=== PATIENT | female | born 1935 | race Caucasian/White ===

== ENCOUNTER → 2016-12-28 | Outpatient (CLI) | payer OTHER ==
[~2016-12-28] MED LIST: ACIDOPHILUS1 EAC4 PO; ALBUTEROL2.5 MG/0.5 INH; ALDACTONE25 MG PO; AMIODARONE PO; AMITRIPTYLINE H25 M2 PO; APAP500 PO; APAP650 PO; ASPIR 8181 MG PO; ASPIRIN325 PO; BENAZEPRIL HCL10 MG PO; CALCIUM + VITA1 EAC1 PO; CALCIUM 600 +1 EA13 PO; CARVEDILOL12.5 MG PO; CARVEDILOL25 MG PO; CENTRUM SILVER1 EAC4 PO; CEPHALEXIN 500500 M3 PO; CLONIDINE HCL0.3 M2 PO; CLONIDINE0.1 PO; COREG6.25 MG PO; DEMADEX20 MG PO; DILTIAZEM 24HR360 M1 PO; ELIQUIS2.5 MG PO; ERYTHROMYCIN E3.5 G3 OPHTHALMIC; FLANAX220 MG PO; FLAX SEED OIL1000 MG PO; FLAXSEED1000 MG PO; FOSAMAX 70 MG T70 M1 PO; FOSAMAX 70 MG T70 MG PO; FUROSEMIDE 20 M20 M1 PO; FUROSEMIDE 40 M40 M1 PO; GABAPENTIN 100100 MG PO; HUMALOG100 UNIT/1 SUBQ; HYTRIN 1 MG CAP1 MG PO; IMODIUM MULTI-1 EACH PO; K-DUR 20 MEQ T20 MEQ PO; LANOXIN 0.120.125 M1 PO; LANTUS SUBQ; LASIX 40 MG TAB40 MG PO; LEVAQUIN 250 M250 MG PO; LEVEMIR SUBQ; LEVOTHYROXINE0.05 MG PO; LIPITOR10 MG PO; LISINOPRIL40 MG PO; LOPRESSOR100 MG PO; LOTENSIN40 MG PO; MAALOX525 MG/15; MAGNESIUM400 MG PO; METOLAZONE 2.52.5 MG PO; MUCINEX TA600 MG/TA2 PO; NORVASC 2.5 MG2.5 M1 PO; NORVASC 5 MG TAB5 MG PO; NOVOLOG100 UNIT/1 SUBQ; NUMOISYN300 ML PO; PACERONE 200 M200 M1 PO; PRAVACHOL80 MG PO; PREDNISONE 10 M10 MG; PREDNISONE 20 M20 MG PO; PROAIR HFA8.5 GM; PROTONIX40 M1 PO; ROCEPHIN 11 GM/1001 IV; SYMBICORT160 MCG/4. INH; TESSALON PERLE100 MG PO; TOPROL XL100 MG PO; TORSEMIDE10 MG PO; TORSEMIDE20 MG PO; VALTREX 500 MG500 MG PO; VITAMIN D35000 UNI1 PO; XARELTO15 MG PO; XARELTO20 MG PO
== END ==
LOC: NUC 02:42
DX: E11.621 Type 2 diabetes mellitus with foot ulcer (principal); L97.509 Non-pressure chronic ulcer of other part of unspecified foot with unspecified severity; L08.9 Local infection of the skin and subcutaneous tissue, unspecified

== ENCOUNTER 2017-01-04 10:40 | Emergency (ER) | payer OTHER ==
[~2017-01-04] VITALS: Ht 165.1 cm; Wt 85.3 kg
[2017-01-04] MEDS ORDERED: ALDACTONE25 MG PO (11:16)
[2017-01-04] MEDS ORDERED: DEMADEX20 MG PO (11:40)
[2017-01-04] MEDS ORDERED: PERCOCET 5-3251 EACH PO (12:59)
== END 2017-01-04 13:27 | disposition home or self-care (01) ==
LOC: ER 10:40
DX: S89.91XA Unspecified injury of right lower leg, initial encounter (principal); I50.9 Heart failure, unspecified; E11.9 Type 2 diabetes mellitus without complications; E09.40 Drug or chemical induced diabetes mellitus with neurological complications with diabetic neuropathy, unspecified; Z90.710 Acquired absence of both cervix and uterus; Z85.828 Personal history of other malignant neoplasm of skin; I10 Essential (primary) hypertension; Z95.0 Presence of cardiac pacemaker; Z88.8 Allergy status to other drugs, medicaments and biological substances; W06.XXXA Fall from bed, initial encounter; Y93.89 Activity, other specified; Y92.89 Other specified places as the place of occurrence of the external cause; Y99.9 Unspecified external cause status

== ENCOUNTER → 2017-01-05 | Outpatient (CLI) | payer OTHER ==
[~2017-01-05] MED LIST changes: +PERCOCET 5-3251 EACH PO
== END ==
LOC: HYPER 06:59
DX: S81.801A Unspecified open wound, right lower leg, initial encounter (principal); E11.40 Type 2 diabetes mellitus with diabetic neuropathy, unspecified; M19.90 Unspecified osteoarthritis, unspecified site; I11.0 Hypertensive heart disease with heart failure; I50.9 Heart failure, unspecified; I48.0 Paroxysmal atrial fibrillation; Z95.0 Presence of cardiac pacemaker; Z79.4 Long term (current) use of insulin; Z90.710 Acquired absence of both cervix and uterus; Z85.828 Personal history of other malignant neoplasm of skin; Z72.89 Other problems related to lifestyle; W05.1XXA Fall from non-moving nonmotorized scooter, initial encounter; Y93.89 Activity, other specified; Y92.89 Other specified places as the place of occurrence of the external cause; Y99.8 Other external cause status

== ENCOUNTER → 2017-01-12 | Outpatient (CLI) | payer OTHER | LOC: HYPER 07:07 | DX: E11.622 Type 2 diabetes mellitus with other skin ulcer (principal); L97.811 Non-pressure chronic ulcer of other part of right lower leg limited to breakdown of skin; E11.40 Type 2 diabetes mellitus with diabetic neuropathy, unspecified; M19.90 Unspecified osteoarthritis, unspecified site; I11.0 Hypertensive heart disease with heart failure; I50.20 Unspecified systolic (congestive) heart failure; I48.0 Paroxysmal atrial fibrillation; Z79.4 Long term (current) use of insulin; Z72.89 Other problems related to lifestyle ==

== ENCOUNTER → 2017-01-23 | Outpatient (CLI) | payer OTHER | LOC: HYPER 07:06 | DX: E11.621 Type 2 diabetes mellitus with foot ulcer (principal); L97.811 Non-pressure chronic ulcer of other part of right lower leg limited to breakdown of skin; E11.40 Type 2 diabetes mellitus with diabetic neuropathy, unspecified; M19.90 Unspecified osteoarthritis, unspecified site; I48.0 Paroxysmal atrial fibrillation; I11.0 Hypertensive heart disease with heart failure; I50.9 Heart failure, unspecified; Z72.89 Other problems related to lifestyle; Z95.1 Presence of aortocoronary bypass graft; Z90.710 Acquired absence of both cervix and uterus; Z79.4 Long term (current) use of insulin; Z85.828 Personal history of other malignant neoplasm of skin ==

== ENCOUNTER → 2017-02-13 | Outpatient (CLI) | payer OTHER | LOC: HYPER 07:09 | DX: S81.801D Unspecified open wound, right lower leg, subsequent encounter (principal); E11.40 Type 2 diabetes mellitus with diabetic neuropathy, unspecified; M19.90 Unspecified osteoarthritis, unspecified site; I11.0 Hypertensive heart disease with heart failure; I50.9 Heart failure, unspecified; I48.0 Paroxysmal atrial fibrillation; Z95.0 Presence of cardiac pacemaker; Z90.710 Acquired absence of both cervix and uterus; Z85.828 Personal history of other malignant neoplasm of skin; Z72.89 Other problems related to lifestyle; Z79.4 Long term (current) use of insulin; X58.XXXD Exposure to other specified factors, subsequent encounter ==

== ENCOUNTER → 2017-03-07 | Outpatient (CLI) | payer OTHER | LOC: HYPER 07:42 | DX: S81.801D Unspecified open wound, right lower leg, subsequent encounter (principal); E11.40 Type 2 diabetes mellitus with diabetic neuropathy, unspecified; M19.90 Unspecified osteoarthritis, unspecified site; I11.0 Hypertensive heart disease with heart failure; I50.9 Heart failure, unspecified; I48.0 Paroxysmal atrial fibrillation; Z79.4 Long term (current) use of insulin; Z72.89 Other problems related to lifestyle; X58.XXXD Exposure to other specified factors, subsequent encounter ==

== ENCOUNTER 2017-03-19 13:11 | Inpatient (IN) | payer OTHER ==
[~2017-03-19] VITALS: Ht 170.2 cm; Wt 75.7 kg
[2017-03-19] VITALS (31 sets, daily range): BP systolic 51–219; BP diastolic 33–198
--- NOTE | ~2017-03-19 | HC ---
[facility] [place] [address] CONSULTATION Name: GRACE VELAZQUEZ Room #: 237-P ADM IN M.R.#: [id number] Admission: 03/19/17 Attend Phys: Christina Breen MD Discharge: Date of : 34 Report #: [id number] THIS REPORT FOR: //name// CC: Chirstina Lundyore Patton DATE OF SERVICE: 03/19/2017 NEPHROLOGY CONSULTATION ATTENDING PHYSICIAN: Dr. Breen. REASON FOR CONSULTATION: [id number] kidney disease. HISTORY OF PRESENT ILLNESS: An 81-year-old patient, known to our service, has been followed intermittently in our office with diabetic nephropathy, with baseline creatinine of, I believe, close to 2. Has also been seen in the hospital on several occasions with chronic kidney disease. She had melena and hematemesis over the last couple of days, became progressively weak, came to the emergency room, was found to have hemoglobin of only 4.5 and was admitted. PAST MEDICAL HISTORY: She has chronic atrial fibrillation, permanent pacemaker and sick sinus syndrome. She is on chronic Eliquis therapy. Recent episode of shingles for which she was admitted to the hospital. She has had some skin cancers, apparently had an ICD placed. She has had long-standing diabetes with peripheral neuropathy and CKD with modest proteinuria, previous hysterectomy as well. FAMILY HISTORY: Negative for renal disease or diabetes. SOCIAL HISTORY: No cigarettes or alcohol. REVIEW OF SYSTEMS: GENERAL: She has been a poor historian at the current time as she is somewhat groggy, very ill, is seen in the ICU. EYES: Vision appears to be okay. ENT: Hearing okay. No problems with swallowing. ENDOCRINE: Positive for the diabetes. RESPIRATORY: She denies shortness of breath or pleuritic pain. No cough or hemoptysis. CARDIAC: No chest pain. No current swelling in the legs. GASTROINTESTINAL: She has had the nausea, vomiting, bloody stool and bloody emesis, as mentioned, but no abdominal pain. GENITOURINARY: No dysuria or hematuria. [facility] [address] [place] [address] CONSULTATION Name: GRACE VELAZQUEZ Room #: [address] [place] [address] IN M.R.#: [id number] Admission: 03/19/17 Attend Phys: Christina Breen MD Discharge: Date of : 34 Report #: [id number] NEUROLOGIC: She has got neuropathy symptoms in her legs. PSYCHIATRIC: Denies depression or anxiety. PHYSICAL EXAMINATION: GENERAL: This is an ill-appearing woman, somewhat pale. SKIN: Turgor is okay, no rash. SKELETAL: Somewhat overweight. HEENT: Extraocular movements are full. No scleral icterus. Hearing and vision intact. Mucous membranes dry. NECK: Neck veins are flat. CHEST: Clear. HEART: Regular with a pacemaker. ABDOMEN: Soft and nontender. EXTREMITIES: Show no edema. Peripheral pulses are diminished. Feet are slightly cool. LABORATORY DATA: Initially, hemoglobin only 4.5, hematocrit 13.6. ASSESSMENT AND PLAN: 1. Marked upper gastrointestinal bleed. She has had a marked upper GI bleed. Her BUN is all the way up to 175 with creatinine of 3. She appears to have stopped bleeding and they are holding off on . I will give her lots of blood and fluids. 2. Acute kidney injury superimposed on chronic kidney disease. She has chronic kidney disease and diabetic nephropathy with modest proteinuria. She is not on a renin-angiotensin system drug at the current time. She has acute exacerbation due to marked volume depletion from very severe gastrointestinal bleed. 3. Diabetes mellitus with peripheral neuropathy. 4. Sick sinus syndrome with pacemaker and implantable cardioverter defibrillator. 5. Recent zoster, now resolved. 6. Chronic anticoagulation, on Eliquis. <ELECTRONICALLY SIGNED> By: Andrez Ramirez MD 03/21/17 0718 1741 0137 Woody Moss MD /nt
--- NOTE | ~2017-03-19 | 2DMMODE ---
[facility] [address] [place] [address] 2 D/M-MODE ECHOCARDIOGRAM Name: GRACE VELAZQUEZ Room #: 237-P ADM IN M.R.#: [id number] Admission: 03/19/17 Attend Phys: Christina Breen MD Discharge: Date of : 34 Date of Service: 03/20/17 0859 Report #: [id number] THIS REPORT FOR: //name// APPROVED REPORT Study performed: 03/20/2017 07:54:39 EXAM: Comprehensive 2D, Doppler, and color-flow Echocardiogram Patient Location: Bedside Room #: [facility] Status: routine Other Information Study Quality: Adequate Indications Hx: Afib, pacemaker, CHF, HTN, DM 2D Dimensions RVDd: 44.60 mm LVEF(%): 78.61 (>50%) IVSd: 10.28 (7-11mm) LVOT Diam: 19.95 (18-24mm) LVDd: 45.92 mm PWd: 9.29 (7-11mm) Ascending Ao: 36.94 (22-36mm) LVDs: 24.27 (25-40mm) Aortic Root: 32.67 mm Schafer's LVEF: 78.61 % Volumes Left Atrial Volume (Systole) Single Plane 4CH: 55.31 mL Single Plane 2CH: 71.99 mL LA ESV Index: 36.00 mL/m2 Aortic Valve AoV Peak Maciel.: 1.92 m/s AO Peak Gr.: 14.78 mmHg LVOT Max P.21 mmHg LVOT Max V: 1.14 m/s MARTA Vmax: 1.86 cm2 Mitral Valve MV Decel. Time: 189.29 ms MV E Max Maciel.: 1.58 m/s IVRT: 64.59 ms Pulmonary Valve PV Peak Maciel.: 1.29 m/s PV Peak Gr.: 6.62 mmHg [facility] [place] [address] 2 D/M-MODE ECHOCARDIOGRAM Name: GRISBINGGRACE Room #: 237-P [facility].#: [id number] Admission: 03/19/17 Attend Phys: Christina Breen MD Discharge: Date of : 34 Date of Service: 03/20/17 0859 Report #: [id number] Pulmonary Vein P Vein S: 0.27 m/s P Vein D: 1.13 m/s P Vein S/D Ratio: 0.24 Tricuspid Valve TR Peak Maciel.: 4.98 m/s RAP Estimate: 10.00 mmHg TR Peak Gr.: 99.40 mmHg PA Pressure: 109.00 mmHg Left Ventricle The left ventricle is normal size. There is normal LV segmental wall motion. There is normal left ventricular wall thickness. Left ventricular systolic function is normal. LVEF is 60-65%. This study is not technically sufficient to allow evaluation of the LV diastolic function. Right Ventricle Right ventricle is mildly dilated. The right ventricular systolic function is normal. Pacemaker lead is present in the right ventricle. Atria Left atrium is dilated. Right atrium is dilated. Aortic Valve Aortic valve is mildly calcified. Mild aortic regurgitation. There is no aortic valvular stenosis. Mitral Valve Moderate mitral annular calcification. Mild mitral regurgitation. Tricuspid Valve The tricuspid valve is normal in structure. There is moderate to severe tricuspid regurgitation. The right atrial pressure is estimated at 10 mmHg. There is severe pulmonary hypertension with an estimated PAP of 110mmHg. Pulmonic Valve The pulmonary valve is normal in structure. Mild to moderate pulmonic regurgitation. Great Vessels The aortic root is normal in size. The ascending aorta is normal in size. IVC is dilated and collapses <50% with [facility] [address] [place] [address] 2 D/M-MODE ECHOCARDIOGRAM Name: GRACE VELAZQUEZ Room #: 237-P [facility] IN [facility]#: [id number] Admission: 03/19/17 Attend Phys: Christina Breen MD Discharge: Date of : 34 Date of Service: 03/20/17 0859 Report #: [id number] inspiration. Pericardium There is no pericardial effusion. <Conclusion> Left ventricular systolic function is normal. There is normal LV segmental wall motion. LVEF 60-65%. Right ventricle and right atrium are mildly dilated. Aortic valve is mildly calcified, nonstenotic. Mild aortic regurgitation. Moderate mitral annular calcification. Mild mitral regurgitation. There is severe pulmonary hypertension with an estimated PAP of 100mmHg. There is no pericardial effusion. <ELECTRONICALLY SIGNED> By: Curtis Kim MD, [facility] 03/20/17858 8 8 Curits Kim MD, FAC /INF
--- NOTE | ~2017-03-19 | HC ---
[facility] [place] [address] CONSULTATION Name: GRACE VELAZQUEZ Room #: [address] [place] [address] IN M.R.#: [id number] Admission: 03/19/17 Attend Phys: Christina Breen MD Discharge: Date of : 34 Report #: [id number] THIS REPORT FOR: //name// CC: Darrian Patton DO REASON FOR CONSULTATION: The patient is an 81-year-old woman with coffee-ground emesis and melanotic stools. HISTORY OF PRESENT ILLNESS: The patient has a history of multiple medical problems. She is anticoagulated for atrial fibrillation. In the past 3 days prior to admission, she had black stools. She became progressively weaker and somewhat lethargic. She also had coffee-ground emesis. Her brought her to [facility] yesterday where she was evaluated and found to have a hemoglobin of 4.5 with an MCV of 101.7. She has been transfused and hemoglobin is 7.3 at this time. She also describes diffuse abdominal pain over the previous 3 days as well. She has not had any previous upper GI complaints or symptoms. She has had a colonoscopy in the past, but thinks it has been many years. She thought it was at least 40 years since she has had a colonoscopy. She uses Tylenol, she denies use of nonsteroidals. PAST MEDICAL HISTORY: She has atrial fibrillation, also she has had congestive heart failure. She has a defibrillator ____ in place. She has had DVT in the past. She says she was found to have chronic kidney disease earlier this year. She recently has been treated for herpes zoster. She also has diabetes and chronic obstructive pulmonary disease. PAST SURGICAL HISTORY: Hysterectomy and pacemaker. ALLERGIES: She has diarrhea from METFORMIN. MEDICATIONS: Usual home medicines, her home list includes amitriptyline 2.5 mg at bedtime, benazepril 10 mg IV, which has been on hold recently, carvedilol 6.25 mg twice daily, Eliquis 2.5 mg twice daily, levothyroxine 50 mg ____ torsemide 20 mg daily, benzonatate 200 mg daily, gabapentin 300 mg twice daily, hydrocodone 5/325 every 8 hours as needed for pain, atorvastatin 10 mg daily, spironolactone on hold, Levemir insulin, NovoLog insulin. FAMILY HISTORY: No family history of colon cancer. SOCIAL HISTORY: She is , has never smoked, does not use alcohol. REVIEW OF SYSTEMS: GENERAL: No change in weight, fever or chills. PULMONARY: She has chronic obstructive pulmonary disease, but no longer [address] [place] [address] CONSULTATION Name: GRACE VELAZQUEZ Room #: 237-P [facility] IN M.R.#: [id number] Admission: 03/19/17 Attend Phys: Christina Breen MD Discharge: Date of : 34 Report #: [id number] requires use of oxygen at night. She does have a CPAP. CARDIOVASCULAR: Congestive heart failure without recent chest pain. GASTROINTESTINAL: Recent upper abdominal pain, hematemesis and melena. PHYSICAL EXAMINATION: GENERAL: The patient is a well-developed, well-nourished, obese woman in no acute distress. VITAL SIGNS: Blood pressure 105/45, pulse 73. HEENT: Anicteric. Pupils equal and round. Oropharynx clear. NECK: Supple. CHEST: Clear. HEART: Irregular S1, S2. ABDOMEN: Obese, normal bowel sounds, soft, nontender without hepatosplenomegaly or masses. RECTAL: Not done. EXTREMITIES: Without cyanosis or clubbing. She does have bilateral pedal edema. ASSESSMENT: 1. Melanotic stool. 2. Hematemesis. 3. Marked anemia. 4. Diffuse abdominal pain. 5. Acute kidney injury. 6. Chronic kidney disease. 7. Congestive heart failure. 8. Atrial fibrillation with anticoagulation. 9. Chronic obstructive pulmonary disease. 10. Herpes zoster. PLAN: Upper endoscopy to evaluate GI bleeding source, we will proceed at this point in time. <ELECTRONICALLY SIGNED> By: Darrian Prasad MD 03/21/17 1217 1243 18 Darrian Prasad MD /nt
--- NOTE | ~2017-03-19 | EKG ---
[address] [address] ELECTROCARDIOGRAM REPORT Name: GRACE VELAZQUEZ Room #: 237-P ADM IN M.R.#: [id number] Admission: 03/19/17 Attend Phys: Christina Breen MD Discharge: Date of : 34 Report #: [id number] THIS REPORT FOR: //name// [facility] ED Test Date: 2017-03-19 Test Time: 16:26:21 Pat Name: GRACE VELAZQUEZ Department: Room: [facility] Gender: F Racquet Maker: SMOOTH : 1935 Requested By: Froilan Maria Order Number: [id number] MD: Alexandru Giron Measurements Intervals [place] Rate: 130 P: 0 DC: 116 QRS: -84 QRSD: 212 T: QT: QTc: 0 Interpretive Statements A-V dual-paced complexes w/ some inhibition No further analysis attempted due to paced rhythm Artifact in lead(s) I,II,III,aVR,aVL,aVF,V1,V2,V6 Compared to ECG 07/28/2015 19:59:56 No significant changes Electronically Signed On 03-19-2017 22:06:48 CDT by Alexandru Giron [email or web address] <ELECTRONICALLY SIGNED> By: Alexandru Giron MD 03/19/176 25 25 Alexandru Giron MD /EPI
--- NOTE | ~2017-03-19 | HC ---
[facility] [place] [address] CONSULTATION Name: GRACE VELAZQUEZ Room #: [address] [place] [address] IN M.R.#: [id number] Admission: 03/19/17 Attend Phys: Christina Breen MD Discharge: Date of : 34 Report #: [id number] THIS REPORT FOR: //name// CC: Christina Patton REASON FOR CONSULTATION: Atrial fibrillation and pacemaker. SUBJECTIVE: The patient is an 81-year-old with history of pacemaker, AV node ablation and atrial fibrillation, on Eliquis therapy, who has been experiencing increased fatigue, lightheadedness and exertional dyspnea, presented to the ER and was found to be anemic. REVIEW OF SYSTEMS: GENERAL: No fevers or chills. HEENT: No blurred vision. CARDIOVASCULAR: As above. Also, no chest pain or chest pressure. No PND or orthopnea. No presyncope or syncope. PULMONARY: No productive cough. GASTROINTESTINAL: She has been having nausea, vomiting. She has been vomiting blood and she has had blood in the stools. GENITOURINARY: No dysuria. MUSCULOSKELETAL: No myalgias or arthralgias. ENDOCRINE: No heat or cold intolerance. PAST MEDICAL HISTORY: 1. AFib, status post pacemaker with AV node ablation. 2. Blood clots. 3. Diabetes. 4. Arthritis. 5. Neuropathy. 6. Diastolic heart failure. 7. Hypertension. SOCIAL HISTORY: He has never smoked. FAMILY HISTORY: Noncontributory. ALLERGIES: Include METFORMIN. HOME MEDICATIONS: Reviewed and have included apixaban 2.5 b.i.d., carvedilol, spironolactone, insulin, gabapentin, Lipitor, amitriptyline, Synthroid, Symbicort, and vitamin D3. PHYSICAL EXAMINATION: VITAL SIGNS: Temperature is 36.3, pulse 71, respiratory rate 11, blood pressure 114/48, and sats 100%. [facility] [address] [place] [address] CONSULTATION Name: GRACE VELAZQUEZ Room #: [address] [place] [address]#: [id number] Admission: 03/19/17 Attend Phys: Christina Breen MD Discharge: Date of : 34 Report #: [id number] GENERAL: She is lethargic, but in no acute distress, lying flat. HEENT: Oropharynx is clear. Sclerae anicteric. NECK: Supple, with no thyromegaly. HEART: Regular rate and rhythm with normal S1 and S2. No S3s or S4s. She does not have elevated jugular venous pressure. LUNGS: Clear to auscultation bilaterally. ABDOMEN: Soft, nontender, nondistended with no hepatosplenomegaly. EXTREMITIES: No clubbing, cyanosis, edema. NEUROLOGIC: Cranial nerves 2-12 are intact. LABORATORY DATA: White count 19, hemoglobin 4.5, and platelets 233. Coags: INR 1.3. Chemistry: Potassium 4.2, creatinine 3. Troponin negative. DIAGNOSTIC DATA: Her EKG shows AFib with a ventricular paced rhythm. Her EKG shows a dual chamber pacemaker. There is no acute process, otherwise. IMPRESSION: In summary, the patient is an 81-year-old who was found to have severe anemia. From a cardiovascular standpoint, she appears to be stable. I recommend holding her Eliquis. Unfortunately, this does not have a reversal agent as of yet. Transfuse the patient as necessary. I will check an echocardiogram to evaluate her left ventricular size and function. We will closely monitor her volume status. She has had issues with diastolic heart failure in the past. We will continue to follow. <ELECTRONICALLY SIGNED> By: Alexandru Giron MD 03/20/17 1553 2038 0347 Alexandru Giron MD /nt
--- NOTE | ~2017-03-19 | S ---
[facility] [place] [address] SURGICAL PATH RPT PROCEDURE Name: GRACE ANDRADE Room #: 453-P ADM IN M.R.#: [id number] Admission: 03/19/17 Date of : 34 Discharge: Report #: [id number] Path Case #: [id number] PATHOLOGY REPORT COLLECTION DATE: 03/20/2017 RECEIVED DATE: 03/21/2017 SUBMITTING PHYS: Dr. Darrian Prasad OTHER PHYS: Dr. Himanshu Breen SPECIMEN(S) RECEIVED: A.Bx of antrum body, multiple gastric ulcers * * * * * * * * * * * * FINAL DIAGNOSIS: Gastric mucosa, antrum body, endoscopic biopsy: - Mild reactive gastropathy. - Negative for intestinal metaplasia or atrophy. - Negative for Helicobacter pylori. COMMENT: Helicobacter pylori immunohistochemical stain performed on block A1 - Negative. PATHOLOGIST: Alize Marion M.D. REPORT ELECTRONICALLY SIGNED BY: Alize Marion M.D. DATE/TIME: 03/22/2017 16:26 * * * * * * * * * * * * GROSS PATHOLOGY: Received in formalin labeled "Grace Andrade, biopsy of antrum body," are 5 segments of costa soft tissue measuring 0.7 x 0.5 x 0.2 cm in aggregate dimensions and ranging from 0.3 to 0.7 cm in maximum dimension. The specimen is submitted entirely in cassette A1. (KAH; 03/21/2017) CLINICAL HISTORY: Pre-op diagnosis: GI bleed Post-op diagnosis: Multiple gastric ulcers INITIAL CPT CODE(S): A; 54902, 85436 Professional services performed by [facility] at [facility] [address] [place] [address] [facility] [address] [place] [address] SURGICAL PATH RPT PROCEDURE Name: GRACE ANDRADE Room #: 453-P ADM IN M.R.#: [id number] Admission: 03/19/17 Date of : 34 Discharge: Report #: [id number] Path Case #: [id number] Technical services performed by [facility] at [address] [place] [address], [facility] [address] [address]. [facility] [address] [place] [address] PHONE: [phone] DIRECTOR: Keith Everett M.D. * * * END OF REPORT * * *
--- NOTE | ~2017-03-19 | P ---
[facility] [address] PROCEDURE REPORT Name: GRACE VELAZQUEZ Room #: 237-P [facility] IN M.R.#: [id number] Admission: 03/19/17 Attend Phys: Christina Breen MD Discharge: Date of : 34 Report #: [id number] THIS REPORT FOR: //name// CC: Christina Patton DO BRIEF HISTORY: The patient is an 81-year-old woman who was admitted to [facility] with hemoglobin of 4.5 and melena for 3 days. She had anticoagulants. She also had hematemesis. She also described diffuse upper abdominal pain for 3 days prior to admission. PREOPERATIVE DIAGNOSIS: Upper gastrointestinal bleeding. POSTOPERATIVE DIAGNOSIS: Multiple gastric ulcers, nonbleeding. MEDICATIONS: Deep sedation with propofol per anesthesia. SPECIMEN: Biopsies of gastritis. ESTIMATED BLOOD LOSS: 3 mL. PROCEDURE: EGD with biopsy. FINDINGS: Prior to propofol sedation, procedure of upper endoscopy was discussed with the patient as well as potential risks and its complications. She indicates she understands and desires to proceed. DESCRIPTION OF PROCEDURE: With the patient in the left lateral decubitus position, Fuji video endoscope was inserted in the cervical esophagus under direct vision without difficulty. Examination of this organ to its entire length revealed normal esophageal mucosa down the squamocolumnar junction. Squamocolumnar junction was inspected and noted to be unremarkable. The scope was advanced in the stomach, which was examined on end views as well as retroflexed views. There was no blood seen. Examination of the antrum revealed multiple ulcer craters in the antrum with moderate depth. They all had white exudate . They all had a smooth and benign appearance. None of them were bleeding. There were no clots. The smallest ulcer was about 4 mm and the largest was probably about 15 mm. At least 2 of the ulcers had flat red spots on the exudate, but no raised lesions or exposed vessels were seen. Upon retroflexion, no mass lesions were seen. The proximal stomach and mucosa were normal. Multiple biopsies were obtained around the ulcer to evaluate for H. pylori. However, due to recent bleeding, we did not directly biopsy the ulcers. The pylorus was inspected and noted to be unremarkable. Duodenal bulb was normal. Duodenal sweep down in the third portion was normal. At that point, the scope was slowly withdrawn and careful circumferential views confirmed the above findings. The patient tolerated the procedure well. [address] [address] PROCEDURE REPORT Name: GRACE VELAZQUEZ Room #: 237-P [facility] IN [facility]#: [id number] Admission: 03/19/17 Attend Phys: Christina Breen MD Discharge: Date of : 34 Report #: [id number] DISPOSITION: The patient who presented with GI bleeding and requiring transfusion. She also had pain and had hematemesis. She has multiple ulcers. When I spoke with the patient prior to the procedure, she denied the use of any aspirin and nonsteroidals, although she has been on anticoagulation for atrial fibrillation. We will re-visit that issue once again. In view of the multiple gastric ulcers, we will obtain a Gastrin for further evaluation. She is currently on PPI. We will continue on IV PPI for at least another 24-48 hours. However, she is now off of anticoagulation, which is most important with regards to management of her bleeding ulcers. We will start clear liquids at this point in time. Continue to monitor hemoglobin. Since there were flat red spots on the ulcer craters, there is a moderate risk of recurrent bleeding here in the hospital. In addition, the patient will require upper endoscopy in about 8 weeks to ensure healing of the ulcers. <ELECTRONICALLY SIGNED> By: Darrian Prasad MD 03/21/17 1217 1311 0054 Darrian Prasad MD /nt
[2017-03-19 14:29] LABS: ABSOLUTE NEUTROPHILS 15.9 thou/uL (1.4-8.2); BASOPHILS 0.4 % (0.0-2.0); EOSINOPHILS 0.2 % (0.0-3.0); MCH 33.5 pg (26.0-34.0); MCHC 32.9 g/dL (28.0-37.0); MONOCYTES 7.4 % (1.0-8.0); PLATELET COUNT 233 thou/uL (150-400); RBC 1.34 mil/uL (4.20-5.00); RDW 15.2 % (10.5-14.5); WBC 19.9 thou/uL (4.0-11.0)
[2017-03-19 14:31] LABS: HEMOGLOBIN 4.5 gm/dL (12.0-15.0)
[2017-03-19 14:34] LABS: HEMATOCRIT 13.6 % (37.0-47.0); MANUAL DIFF NO; MCV 101.7 fL (80.0-100.0)
[2017-03-19 14:48] LABS: CALCIUM 9.4 mg/dL (8.5-10.1); POTASSIUM 4.2 mmol/L (3.5-5.1)
[2017-03-19 14:51] LABS: ALBUMIN 3.1 g/dL (3.4-5.0); TOTAL BILIRUBIN 0.3 mg/dL (<0.1-1.0); TOTAL PROTEIN 6.7 g/dL (6.4-8.2); TROPONIN-I 0.07 ng/mL (<0.04-0.07)
[2017-03-19 15:28] LABS: URINE BILIRUBIN NEGATIVE (Negative); URINE BLOOD 2+ (Negative); URINE COLOR YELLOW; URINE GLUCOSE-RANDOM* NEGATIVE (Negative); URINE KETONES NEGATIVE (Negative); URINE LEUKOCYTES-REFLEX 3+ (Negative); URINE PROTEIN (DIPSTICK) TRACE (Negative); URINE UROBILINOGEN 0.2 E.U./dl (0.2-1.0)
[2017-03-19 15:33] LABS: CASTS None Seen /LPF (None Seen); RENAL EPITHELIAL CELLS 4-10 Moderate /LPF (None Seen); SQUAMOUS 0-3 Few /LPF (0-3); URINE WBC-REFLEX >25 Many /HPF (0-5)
[2017-03-19 15:34] LABS: CRYSTALS None Seen /LPF (None Seen); URINE RBC 3-10 Few /HPF (0-2)
[2017-03-19 16:52] LABS: INR 1.3; PROTIME 13.4 Seconds (9.3-11.4)
[2017-03-19 16:54] LABS: APTT 18.3 Seconds (24.5-32.8)
[2017-03-20] VITALS (56 sets, daily range): BP systolic 62–184; BP diastolic 45–131
[2017-03-20 04:42] LABS: HEMATOCRIT 21.9 % (37.0-47.0); MCH 32.5 pg (26.0-34.0); MCHC 33.4 g/dL (28.0-37.0); MCV 97.4 fL (80.0-100.0); PLATELET COUNT 173 thou/uL (150-400); RBC 2.24 mil/uL (4.20-5.00); RDW 15.1 % (10.5-14.5); WBC 15.2 thou/uL (4.0-11.0)
[2017-03-20 04:52] LABS: HEMOGLOBIN 7.3 gm/dL (12.0-15.0); MANUAL DIFF YES
[2017-03-20 05:58] LABS: ALBUMIN 2.8 g/dL (3.4-5.0); CALCIUM 8.3 mg/dL (8.5-10.1); CREATININE 2.7 mg/dL (0.6-1.0); PHOSPHORUS 4.7 mg/dL (2.5-4.9); TOTAL BILIRUBIN 0.4 mg/dL (<0.1-1.0); TOTAL PROTEIN 5.6 g/dL (6.4-8.2)
[2017-03-20 08:21] LABS: ABSOLUTE NEUTROPHILS 12.3 thou/uL (1.4-8.2); METAMYELOCYTES 1 %; NUCLEATED RBCS 1 /100WBC; TOTAL CELL COUNT 100
[2017-03-20 08:22] LABS: ANISOCYTOSIS 2+; HYPOCHROMASIA 1+; POLYCHROMASIA SLIGHT
[2017-03-20] MEDS ORDERED: ELIQUIS2.5 MG PO (09:31)
[2017-03-20] MEDS ORDERED: DEMADEX20 MG PO (09:31)
[2017-03-20] MEDS ORDERED: NEURONTIN300 MG PO (09:32)
[2017-03-20] MEDS ORDERED: HYDROCODONE-AP1 EAC6 PO (09:32)
[2017-03-20] MEDS ORDERED: SYMBICORT160 MCG/4. INH (09:33)
[2017-03-20] MEDS ORDERED: TYLENOL325 MG PO (09:33)
[2017-03-20 14:38] LABS: HEMATOCRIT 25.1 % (37.0-47.0); HEMOGLOBIN 8.3 gm/dL (12.0-15.0); MCH 32.9 pg (26.0-34.0); MCV 99.8 fL (80.0-100.0); RBC 2.52 mil/uL (4.20-5.00); RDW 15.6 % (10.5-14.5); WBC 15.2 thou/uL (4.0-11.0)
[2017-03-21] VITALS (22 sets, daily range): BP systolic 91–143; BP diastolic 50–102
[2017-03-21 04:26] LABS: ABSOLUTE NEUTROPHILS 7.2 thou/uL (1.4-8.2); WBC 8.8 thou/uL (4.0-11.0)
[2017-03-21 04:27] LABS: BASOPHILS 0.1 % (0.0-2.0); LYMPHOCYTES 10.6 % (24.0-44.0); MCH 33.2 pg (26.0-34.0); MCHC 33.9 g/dL (28.0-37.0); MCV 98.1 fL (80.0-100.0); MONOCYTES 7.7 % (1.0-8.0); PLATELET COUNT 159 thou/uL (150-400); POLYS 81.6 % (36.0-66.0); RBC 2.02 mil/uL (4.20-5.00); RDW 15.7 % (10.5-14.5)
[2017-03-21 04:32] LABS: MANUAL DIFF NO
[2017-03-21 04:36] LABS: HEMATOCRIT 19.8 % (37.0-47.0); HEMOGLOBIN 6.7 gm/dL (12.0-15.0)
[2017-03-21 04:38] LABS: ALBUMIN 2.6 g/dL (3.4-5.0); CALCIUM 7.6 mg/dL (8.5-10.1); CREATININE 1.8 mg/dL (0.6-1.0); PHOSPHORUS 3.2 mg/dL (2.5-4.9); POTASSIUM 4.3 mmol/L (3.5-5.1)
[2017-03-22 04:02] VITALS: BP 110/60
[2017-03-22 06:56] LABS: BASOPHILS 0.4 % (0.0-2.0); EOSINOPHILS 2.8 % (0.0-3.0); HEMATOCRIT 29.5 % (37.0-47.0); HEMOGLOBIN 9.9 gm/dL (12.0-15.0); LYMPHOCYTES 10.8 % (24.0-44.0); MCH 32.1 pg (26.0-34.0); MCHC 33.6 g/dL (28.0-37.0); MCV 95.7 fL (80.0-100.0); PLATELET COUNT 166 thou/uL (150-400); RBC 3.09 mil/uL (4.20-5.00); RDW 15.9 % (10.5-14.5); WBC 10.2 thou/uL (4.0-11.0)
[2017-03-22 07:02] LABS: MANUAL DIFF NO
[2017-03-22 07:20] LABS: ALBUMIN 2.9 g/dL (3.4-5.0); CALCIUM 8.2 mg/dL (8.5-10.1); CREATININE 1.4 mg/dL (0.6-1.0); PHOSPHORUS 2.6 mg/dL (2.5-4.9); POTASSIUM 3.7 mmol/L (3.5-5.1)
[2017-03-22 07:41] VITALS: BP 145/74
[2017-03-22 10:32] LABS: % SATURATION 7 % (20-39); IRON 24 ug/dL (50-170); TIBC 357 ug/dL (250-450); UIBC 333 ug/dL
[2017-03-22 11:20] VITALS: BP 127/80
[2017-03-22 16:35] VITALS: BP 149/82
[2017-03-22 19:19] VITALS: BP 139/74
[2017-03-23 04:15] VITALS: BP 122/88
[2017-03-23 06:05] LABS: ABSOLUTE NEUTROPHILS 9.3 thou/uL (1.4-8.2); BASOPHILS 0.3 % (0.0-2.0); HEMATOCRIT 29.7 % (37.0-47.0); HEMOGLOBIN 10.1 gm/dL (12.0-15.0); LYMPHOCYTES 10.4 % (24.0-44.0); MCH 32.2 pg (26.0-34.0); MCHC 34.1 g/dL (28.0-37.0); MCV 94.5 fL (80.0-100.0); MONOCYTES 8.8 % (1.0-8.0); PLATELET COUNT 176 thou/uL (150-400); POLYS 78.5 % (36.0-66.0); RBC 3.14 mil/uL (4.20-5.00); RDW 15.6 % (10.5-14.5); WBC 11.9 thou/uL (4.0-11.0)
[2017-03-23 06:13] LABS: MANUAL DIFF NO
[2017-03-23 06:25] LABS: CALCIUM 8.4 mg/dL (8.5-10.1); CREATININE 1.2 mg/dL (0.6-1.0); PHOSPHORUS 2.4 mg/dL (2.5-4.9)
[2017-03-23 09:55] VITALS: BP 165/86
[2017-03-23 12:40] VITALS: BP 147/63
[2017-03-23] MEDS ORDERED: KEFLEX500 MG PO (15:05)
[2017-03-23] MEDS ORDERED: PROTONIX40 M1 PO (15:06)
[2017-03-23 15:23] VITALS: BP 147/63
== END 2017-03-23 16:00 | disposition home or self-care (01) | DRG 377 ==
LOC: ER 13:11 → ICU 15:43 → EROBS 15:43 → ICU 17:01 → 4W 03-21 19:04
PROVIDERS: Emergency Medicine; Internal Medicine Endocrinology, Diabetes & Metabolism; Internal Medicine Nephrology; Nurse Practitioner
PROC: 30233N1 Transfusion of Nonautologous Red Blood Cells into Peripheral Vein, Percutaneous Approach (ICD-10-PCS; 2017-03-19)
PROC: 0DB68ZX Excision of Stomach, Via Natural or Artificial Opening Endoscopic, Diagnostic (ICD-10-PCS; principal; 2017-03-20)
DX: K92.2 Gastrointestinal hemorrhage, unspecified (principal); E43 Unspecified severe protein-calorie malnutrition; N17.9 Acute kidney failure, unspecified; N39.0 Urinary tract infection, site not specified; I13.0 Hypertensive heart and chronic kidney disease with heart failure and stage 1 through stage 4 chronic kidney disease, or unspecified chronic kidney disease; I50.30 Unspecified diastolic (congestive) heart failure; M19.90 Unspecified osteoarthritis, unspecified site; I48.0 Paroxysmal atrial fibrillation; Z96.89 Presence of other specified functional implants; I49.5 Sick sinus syndrome; E11.42 Type 2 diabetes mellitus with diabetic polyneuropathy; N18.3 Chronic kidney disease, stage 3 (moderate); E11.22 Type 2 diabetes mellitus with diabetic chronic kidney disease; J44.9 Chronic obstructive pulmonary disease, unspecified; D50.9 Iron deficiency anemia, unspecified; B02.9 Zoster without complications; E11.65 Type 2 diabetes mellitus with hyperglycemia; D53.9 Nutritional anemia, unspecified; Z90.710 Acquired absence of both cervix and uterus; Z88.8 Allergy status to other drugs, medicaments and biological substances; Z95.810 Presence of automatic (implantable) cardiac defibrillator; Z79.01 Long term (current) use of anticoagulants; Z86.718 Personal history of other venous thrombosis and embolism; Z79.899 Other long term (current) drug therapy; Z68.26 Body mass index [BMI] 26.0-26.9, adult
CPT/HCPCS: 10045; 10078; 62110; 62900; 85076

== ENCOUNTER → 2017-05-22 | Outpatient (CLI) | payer OTHER ==
[~2017-05-22] VITALS: Ht 165.1 cm; Wt 90.7 kg
[~2017-05-22] MED LIST changes: +HYDROCODONE-AP1 EAC6 PO; +IRON325 PO; +KEFLEX500 MG PO; +NEURONTIN300 MG PO; -PROAIR HFA8.5 GM; +PROAIR HFA8.5 GM INH; +TYLENOL325 MG PO
--- NOTE | ~2017-05-22 | P ---
[facility] [place] [address] PROCEDURE REPORT Name: GRACE VELAZQUEZ Room #: REG ROSALBA Travis#: [id number] Admission: 05/22/17 Attend Phys: Darrian Prasad MD Discharge: Date of : 33 Report #: [id number] THIS REPORT FOR: //name// CC: Darrian Patton DO BRIEF HISTORY: The patient is an 81-year-old woman who was admitted to [facility] in March of this year with upper GI bleed on anticoagulation. She was found to have multiple gastric ulcers in the antrum. Serum gastrin was negative. She has been treated with a proton pump inhibitor and presents for followup evaluation. She continues on anticoagulation and does require use of a baby aspirin daily. PREOPERATIVE DIAGNOSES: Peptic ulcer disease with upper gastrointestinal bleeding, for followup. POSTOPERATIVE DIAGNOSIS: Moderate diffuse gastritis with deformity to the antrum, but completely healed ulcers. MEDICATIONS: Deep sedation with propofol per anesthesia. SPECIMEN: None. ESTIMATED BLOOD LOSS: None. PROCEDURE: EGD. FINDINGS: Prior to propofol sedation, procedure of upper endoscopy was discussed with the patient as well as potential risks and its complications. She indicates she understands and desires to proceed. DESCRIPTION OF PROCEDURE: With the patient in the left lateral decubitus position, the Wrnchi video endoscope was inserted in the cervical esophagus under direct vision without difficulty. Examination of this organ to its entire length revealed normal esophageal mucosa down to the squamocolumnar junction. No evidence of ulcers or erosions. A Carpenter's mucosa was not seen. The pylorus, duodenal bulb and postbulbar duodenal sweep were inspected and noted to be within normal limits. At that point, the scope was slowly withdrawn and careful circumferential views were obtained, including retroflexing the stomach. Upon slow withdrawal of the scope, no additional abnormalities were seen. Again, the ulcers had healed. There was some deformity in the antrum, but no visible craters were seen. The ulcers have completely healed. Scope was withdrawn. The patient tolerated the procedure well. CONDITION OF THE PATIENT UPON DISCHARGE: Following procedure, the patient drowsy. She will be discharged to home when fully ambulatory. [facility] [address] [place] [address] PROCEDURE REPORT Name: CAROLINEGRACE Room #: REG [facility].#: [id number] Admission: 05/22/17 Attend Phys: Darrian Prasad MD Discharge: Date of : 33 Report #: [id number] INSTRUCTIONS TO THE PATIENT AND FAMILY AT THE TIME OF DISCHARGE: The patient had a significant GI bleed related to ulcers in March of this year. The ulcers have completely healed on proton pump inhibitor. However, she will require detention use of anticoagulation and she does require use of a baby aspirin daily. Therefore, it may be in her best interest to continue use of a PPI, although she may be able to step down to omeprazole 20 mg daily rather than pantoprazole 40 mg daily. She is to follow up with Dr. Himanshu Patton for monitoring of her hemoglobin and return to see me as needed. <ELECTRONICALLY SIGNED> By: Darrian Prasad MD 05/23/17 1547 [id number] Darrian Prasad MD /nt
== END | disposition home or self-care (01) ==
LOC: GI 08:41
DX: K29.70 Gastritis, unspecified, without bleeding (principal); E11.22 Type 2 diabetes mellitus with diabetic chronic kidney disease; N18.9 Chronic kidney disease, unspecified; I13.0 Hypertensive heart and chronic kidney disease with heart failure and stage 1 through stage 4 chronic kidney disease, or unspecified chronic kidney disease; I50.9 Heart failure, unspecified; E78.5 Hyperlipidemia, unspecified; G47.33 Obstructive sleep apnea (adult) (pediatric); J43.8 Other emphysema; D64.9 Anemia, unspecified; M19.90 Unspecified osteoarthritis, unspecified site; I48.91 Unspecified atrial fibrillation; K21.9 Gastro-esophageal reflux disease without esophagitis; Z95.0 Presence of cardiac pacemaker; Z79.4 Long term (current) use of insulin; Z79.899 Other long term (current) drug therapy; Z98.41 Cataract extraction status, right eye; Z98.42 Cataract extraction status, left eye; Z96.1 Presence of intraocular lens; Z90.710 Acquired absence of both cervix and uterus; Z85.828 Personal history of other malignant neoplasm of skin; Z88.8 Allergy status to other drugs, medicaments and biological substances; Z79.82 Long term (current) use of aspirin; Z79.01 Long term (current) use of anticoagulants
CPT/HCPCS: 62110; 62900